=== PATIENT | female | born 1955 | race Caucasian/White ===

== ENCOUNTER 2018-12-19 07:33 | Emergency (ER) | payer OTHER ==
[2018-12-19] MEDS ORDERED: Ketorolac Tromethamine 30 MG/ML VIAL ONE (07:58)
--- NOTE | 2018-12-19 09:08 | RAD ---
RIGHT KNEE 4 VIEW SERIES: INDICATION: Fall with knee injury and pain. FINDINGS: No fracture or dislocation identified. There is moderate osteoarthritis. IMPRESSION: No acute osseous abnormality of the right knee. POS: [facility]
--- NOTE | 2018-12-19 09:09 | RAD ---
RIGHT HIP 2 VIEW SERIES: INDICATION: Fall with injury and pain. FINDINGS: Hip joint is maintained in alignment. There is mild osteoarthritis. IMPRESSION: No acute osseous abnormality of the right hip. POS: [facility]
--- NOTE | 2018-12-19 09:11 | RAD ---
RIGHT LEG 2 VIEWS: INDICATION: Injury with pain, trauma. FINDINGS: No fracture or dislocation of the tibia or fibula. Incidental note of degenerative change at the kne e and ankle. IMPRESSION: No acute osseous abnormality of the right leg. POS: [facility]
== END 2018-12-19 09:42 | disposition home or self-care (01) ==
LOC: ERS 07:33
DX: M25.561 Pain in right knee (principal); M25.551 Pain in right hip; K21.9 Gastro-esophageal reflux disease without esophagitis; F32.9 Major depressive disorder, single episode, unspecified; Z79.899 Other long term (current) drug therapy; W19.XXXA Unspecified fall, initial encounter
CPT/HCPCS: 96372; J1885